=== PATIENT | female | born 1960 | race Caucasian/White ===

== ENCOUNTER 2018-04-17 06:04 | Inpatient (IN) | payer MEDICARE, MEDICAID ==
[~2018-04-17 06:04] MED LIST: Buffered Lidocaine 0.9% SYRIN* 5 ML/SYR SYRINGE INTRADERM ONE; Dexamethasone IV* 4 MG/ML 1 ML (4 MG) IV SLOW PU ONE; Famotidine IV* 10 MG/ML 2 ML (20 mg) IV ONE
[2018-04-17] MEDS ORDERED: Morphine PCA ADULT* 5 MG/ML 30 ML ONE (06:11)
[2018-04-17] MEDS ORDERED: Dexamethasone IV* 4 MG/ML 1 ML (4 MG) ONE (06:21)
[2018-04-17] MEDS ORDERED: Buffered Lidocaine 0.9% SYRIN* 5 ML/SYR SYRINGE ONE (06:21)
[2018-04-17] MEDS ORDERED: Famotidine IV* 10 MG/ML 2 ML (20 mg) ONE (06:21)
[2018-04-17] MEDS ORDERED: ceFAZolin 2 GM PREMIX in ORs 2 GM/50 ML BAG IVPB ONE (06:21)
[2018-04-17] MEDS ORDERED: fentaNYL* 50 MCG/ML 5 ML VIAL (250 MCG VIAL) ONE (06:52)
[2018-04-17] MEDS ORDERED: Midazolam* 1 MG/ML 2 ML VIAL (2 MG) ONE (06:53)
[2018-04-17] MEDS ORDERED: Rocuronium* 10 MG/ML VIAL ONE (06:53)
[2018-04-17] MEDS ORDERED: Naloxone* 0.4 MG/ML 1 ML VIAL IV PRN (07:30)
[2018-04-17] MEDS ORDERED: Acetaminophen IV 1GM/100ML * 1,000 MG/100 ML VIAL IVPB ONE (07:30)
[2018-04-17] MEDS ORDERED: PROCHLORPERAZINE INJ 5 MG/ML 2 ML VIAL IV PRN (07:30)
[2018-04-17] MEDS ORDERED: HYDROcodone/ACETAMIN 5-325 MG* 1 TAB PO PRN (07:30)
[2018-04-17] MEDS ORDERED: diPHENhydraMINE IV* 50 MG/ML 1 ml VIAL (BENADRYL) IV PRN (07:30)
[2018-04-17] MEDS ORDERED: DiMENhydriNATE IV* 50 MG/ML VIAL IV PUSH PRN (07:30)
[2018-04-17] MEDS ORDERED: HYDROmorphone INJ1* 1 MG/ML SYRINGE IV PRN (07:30)
[2018-04-17] MEDS ORDERED: Ketorolac INJ* 30 MG/ML 1 ML VIAL IV PRN (07:30)
[2018-04-17] MEDS ORDERED: Bupivacaine 0.25% EPI 200,000* 30 ML SDV ONE (07:43)
[2018-04-17] MEDS ORDERED: Tranexamic Acid 1,000 MG in NS 0.9% 50 ML IV ONE (08:00)
[2018-04-17] MEDS ORDERED: HYDROmorphone INJ1* 1 MG/ML SYRINGE ONE (08:04)
[2018-04-17] MEDS ORDERED: Propofol* 10 MG/ML 20 ML BTL IV PUSH ONE (08:19)
[2018-04-17] MEDS ORDERED: Lidocaine 2% PF * 5 ML VIAL ONE (08:20)
[2018-04-17] MEDS ORDERED: Neostigmine Methylsulfate* 2 MG/2 ML SYRINGE ONE (09:05)
[2018-04-17] MEDS ORDERED: Glycopyrrolate IV* 0.2 MG/ML 1 ML VIAL ONE (09:07)
[2018-04-17] MEDS ORDERED: Ondansetron INJ* 2 MG/ML VIAL ONE (09:09)
[2018-04-17] MEDS ORDERED: Acetaminophen IV 1GM/100ML * 100 ML ONE (09:40)
[2018-04-17] MEDS ORDERED: Ketorolac INJ* 30 MG/ML 1 ML VIAL ONE (09:40)
[2018-04-17] MEDS ORDERED: Magnesium Hydroxide LIQ* 30 ML UDC PO PRN (10:13)
[2018-04-17] MEDS ORDERED: Bisacodyl SUPP* 10 MG SUPP PR PRN (10:13)
[2018-04-17] MEDS ORDERED: Cyclobenzaprine TAB* 10 MG PO PRN (10:13)
[2018-04-17] MEDS ORDERED: Ondansetron INJ* 2 MG/ML VIAL IV PRN (10:13)
[2018-04-17] MEDS ORDERED: oxyCODONE/Acetamin 5/325 MG* TAB PO PRN (10:13)
[2018-04-17] MEDS ORDERED: Acetaminophen TAB* 325 MG PO PRN (10:13)
[2018-04-17] MEDS: fentaNYL* 50 MCG/ML 2 ML VIAL (100 MCG VIAL) IV PRN ×2 (10:30→10:43)
[2018-04-17] MEDS ORDERED: fentaNYL* 50 MCG/ML 2 ML VIAL (100 MCG VIAL) ONE (10:30)
[2018-04-17] MEDS: oxyCODONE TAB* 5 MG TAB PO PRN ×3 (13:26→22:57)
[2018-04-17] MEDS ORDERED: Levalbuterol 1.25MG/0.5ML NEB INH SCH (15:00)
--- NOTE | 2018-04-17 15:10 | CONS ---
CONSULTATION NOTE: DATE OF CONSULT: 04/17/18 REASON FOR CONSULT: Medical evaluation in the perioperative setting. HISTORY OF PRESENT ILLNESS: The patient is a 57-year-old lady with history of asthma, lupus, and hypothyroidism, who has had history of partial right knee replacement that was subsequently revised to total, but still complained of pain post revision back in 2011. She has had recent imaging, which showed a possible loose right tibial component, which led to her second revision of her right total knee on the tibial component only. Postoperatively , we have been informed by Orthopedic Surgery to further evaluate the patient in the perioperative setting given she has multiple medical issues. PAST MEDICAL AND SURGICAL HISTORY: Asthma; hyperlipidemia; lupus, on Copaxone every Tuesday, Tuesday and Tuesday; hypothyroidism; anxiety; depression; multiple sclerosis; uterine cancer, status post RACHEL-BSO back in 1984; osteoporosis greater than 10 years; PTSD; wrist fracture, bilateral; status post gastric bypass; total replacement of the right knee; wrist surgery; hysterectomy; appendectomy; gallbladder surgery; ankle fracture on the right. ALLERGIES: To MORPHINE SULFATE, EFFEXOR, DILAUDID, LATEX. FAMILY HISTORY: Heart disease, hypertension, cancer, and rheumatoid arthritis. SOCIAL HISTORY: The patient lives alone. Denies ever having smoked. Denies any alcohol abuse history nor illicit drug use. REVIEW OF SYSTEMS: She denied any recent headaches, dizziness, fevers, chills, nausea, vomiting, chest pain, shortness of breath, increased coughing or sputum production, abdominal pain, diarrhea, constipation, pain and/or increased frequency on urination, myalgias, arthralgias, throat pain, or new skin lesions. The rest of the 14-point review of systems is otherwise unremarkable. PHYSICAL EXAM: Shows the most recent vital signs of record with blood pressure of 102/65, 97.8 degrees Fahrenheit temperature, 68 beats per minute heart rate, 16 per minute respiratory rate, 98% saturation on room air. General Appearance : The patient is awake, alert, and oriented x3, not in acute distress. HEENT: Normocephalic, atraumatic. PERRLA. Extraocular muscles intact. Negative for icterus. Moist oral mucosa. Negative throat erythema. Neck is soft, supple with no cervical lymphadenopathy, no JVD. Heart: S1, S2 within normal limits. Regular rate and rhythm. No murmurs, rubs, or gallops. Chest: Clear to auscultation bilaterally. Good air entry. No wheezes, rales, or rhonchi. Abdomen is soft, nondistended, nontender. Normoactive bowel sounds 4 times Q. Extremities: No cyanosis, clubbing, or edema. Psychiatric: No active psychosis, depression, suicidal ideation nor homicidal ideation. Skin is warm to touch. ASSESSMENT AND PLAN: The patient is a 57-year-old lady with a history of hyperlipidemia, lupus and hypothyroidism, status post revision of right total knee of the tibial component only. 1. Status post revision of right total knee. We will defer to Orthopedic Surgery including postoperative pain management. 2. Hypothyroidism. We will continue Synthroid 125 mcg p.o. q.p.m. 3. Hyperlipidemia. We will continue pravastatin and we will continue watchful waiting. 4. Depression. Continue citalopram. 5. Anxiety. We will start the patient back on diazepam 10 mg p.o. t.i.d. starting tonight. The patient is awake, alert, and oriented on my exam, but we will hold off until tonight given she is still coming off sedation given her recent postoperative state. 6. History of lymphedema. Per the patient, she has never been diagnosed with heart disease and that Lasix has been prescribed for her due to her lower extremity swelling. She denies any history of congestive heart failure. At this time, I would not recommend to place her back on Lasix until at least tomorrow or at least 1 day postop assuming that the patient remains hemodynamically stable. The patient also mentions that she has been placed on carvedilol by her PCP given she was told that she has had an arrhythmia, but was unclear of what type. We will restart her on beta-silvio tonight with appropriate holding orders. 7. DVT prophylaxis: The patient is on subcu heparin and we will defer to Ortho. 8. Disposition: PT and OT eval pending and we will defer to Ortho. Thank you for involving us with Ms. Mederos's care and management. We will follow along with you. [id number]/[facility] #: [id number] CRISPIN
[2018-04-17] MEDS: Heparin VIAL(*) 5000 UNITS/ML VIAL (FIVE THOUSAND) SUBCUT SCH ×2 (15:23→21:32)
[2018-04-17] MEDS ORDERED: Warfarin TAB(*) 6 MG PO ONE (17:00)
[2018-04-17] MEDS ORDERED: ceFAZolin 1 GM in Dextrose (*) 1 GM/50 ML BAG IVPB SCH (19:00)
[2018-04-17] MEDS: ceFAZolin 1 GM in Dextrose (*) 1 GM/50 ML BAG IVPB SCH (19:34)
[2018-04-17] MEDS ORDERED: Melatonin 3 MG TAB PO PRN (19:48)
[2018-04-17] MEDS ORDERED: Temazepam CAP* 15 MG PO PRN (19:48)
--- NOTE | 2018-04-17 21:23 | OP ---
DATE OF OPERATION: 04/17/18 - ROOM #347 DATE OF : 64 SURGEON: Stoney Velasco MD MITER SAW OPERATOR: Justus Angulo RPA ANESTHESIA: General. PRE-OP DIAGNOSIS: Loose right tibia, right total knee. POST-OP DIAGNOSIS: Loose right tibia, right total knee. OPERATIVE PROCEDURE: Revision, right tibia. ESTIMATED BLOOD LOSS: Less than 50 cc. COMPLICATIONS: None. HARDWARE: 1. DePuy MBT revision. 2. Cemented tray with 10 mm step wedge augments both medial and lateral, a 16 x 115 mm fluted stem, and a 10-mm tibial poly for a #4. SUMMARY: Ms. Mederos is a 57-year-old female who had undergone a right total knee arthroplasty as a revision to a partial knee arthroplasty in [place] in 2011. She had done all right in that she was able to walk and get around but had constant complaints of pain about the knee. She was diffusely tender about the knee and even more tender about the proximal tibia. There was also a very specific sclerotic line about the tibial component and a bone scan lit up positive about the tibial component as well. She underwent CRP and ESR testing , both of which had come back normal and considering her pain seemed to be more mechanical, I discussed with her that her tibial component appeared to be loose. I discussed with her revising the tibial component so that she would no longer have that pain. I did warn her that the revision knees can be more painful sometimes and it can be difficult to regain function as well. Other risks of surgery such as infection, scar formation, stiffness, DVT, and pulmonary embolism as well as loosening once again of the implants were discussed. She had been declared medically optimized and wished to proceed. DESCRIPTION OF PROCEDURE: The patient was brought to the OR and general anesthesia was established. Tourniquet was placed over the proximal right thigh and was used during the case. Total tourniquet time would be 75 minutes at 250 mmHg. Right knee was prepped and then draped. Justus Angulo was present for all aspects of the case and it could not have been performed without an assist. Esmarch was used to exsanguinate the leg and the tourniquet was raised. Incision was made using the old scar and carried down through the skin and subcutaneous scar. Extensor mechanism was exposed and a sharp parapatellar arthrotomy was made. Thickened, clear yellowish joint fluid was encountered. Using an osteotome, the stem extension on the poly was sharply cut and poly was easily removed. Just with an osteotome, levering under the tibial component, it was grossly loose and was easily taken out by hand. Osteotome was then used to remove the cement as well as some of the membrane which had formed in the keel recess. Wound was copiously pulse lavaged to make sure it was clear of all of the cement. Beginning with the drill, canal was opened and the hand reamers were then run until I had a nice bite with the 16 reamer. Outrigger was assembled and placed and tibial clean up cut was then taken. This was adjusted as I wanted to take a very minimum as the original total knee replacement had taken quite a bit of the proximal tibia and that first cut only skimmed the bone. A second cut taking perhaps a millimeter was taken and now I had good bone all the way around. I also had plan to use the augments on the tibia so that she would not have as much poly. The reamer was then run and a trial tibial component was assembled and placed. However, with the 4 femur, I was limited in sizes of what I could use on the tibial side. The 3 had quite a bit of overhang and I was displeased on how they sat. I would need to take out her femur, which was secure and considering that the femur did not seem to be the problem, I trialed her with the #2 and the augments. Her motion and stability were excellent. She did, though, have a little overhang on that medial side, plus a little poly overhang with using the poly that would fit the femur. Considering though that the flare of the tibia would have been there, I did not think that this would be something which was going to give her significant troubles. Therefore, decision was made to keep the femur and to go ahead and continuing to just revise the tibia. Parts were then called for and prepared and antibiotic cement was being prepared. Cement was just placed about the top of the tibia and the tibial component was then impacted into place. Nice secure fit seemed to be obtained. Once the cement had hardened, she was trialed with a 10-mm poly and had wonderful motion and stability. Knee was copiously pulse lavaged and searched for cement. A few small pieces were found. Polyethylene was then dropped into place and knee was again copiously pulse lavaged. Parapatellar arthrotomy was repaired using interrupted #1 Vicryl sutures and the tourniquet was let down. No significant bleeding was encountered. Wound was again copiously pulse lavaged and subcutaneous tissues were reapproximated using 2-0 Vicryl. Skin was closed using alex. Sterile dressing was applied. The patient was then awakened in the OR and was stable on transfer to the recovery room. [id number]/[facility] #: [id number] CRIS[place]
[2018-04-17] MEDS: GLATIRAMER ACETATE 40 MG INJ SCH (21:29)
[2018-04-17] MEDS: Carvedilol TAB* 3.125 MG PO SCH (21:30)
[2018-04-17] MEDS: Diazepam TAB(*) 5 MG PO SCH (21:30)
[2018-04-17] MEDS: Magnesium Hydroxide LIQ* 30 ML UDC PO SCH (21:30)
[2018-04-17] MEDS: Docusate CAP* 100 MG PO SCH (21:30)
[2018-04-18] MEDS: oxyCODONE TAB* 5 MG TAB PO PRN ×4 (04:12→21:00)
[2018-04-18] MEDS: ceFAZolin 1 GM in Dextrose (*) 1 GM/50 ML BAG IVPB SCH ×2 (04:13→11:30)
[2018-04-18 05:21] LABS: ABS Basophils 0 10^3/ul (0-0.2); ABS Eosinophils 0 10^3/ul (0-0.6); ABS Lymphocytes 1.3 10^3/ul (1.0-4.8); ABS Monocytes 0.5 10^3/ul (0-0.8); ABS Neutrophils 5.2 10^3/ul (1.5-7.7); ABS Nucleated RBC 0 10^3/ul; Eosinophil % 0.2 % (0-6); Hematocrit 31 % (35-47); Hemoglobin 10.3 g/dl (12.0-16.0); Lymphocyte % 18.6 % (25-47); Mean Corpuscular HGB Conc 34 g/dl (31-36); Mean Corpuscular Hemoglobin 29 pg (27-31); Mean Corpuscular Volume 85 fL (80-97); Mean Platelet Volume 8.7 fL (7.4-10.4); Nucleated Red Blood Cells % 0; Platelet Count 149 10^3/ul (150-450); Red Blood Count 3.62 10^6/ul (4.00-5.40); Red Cell Distribution Width 13 % (10.5-15); White Blood Count 7.1 10^3/ul (3.5-10.8)
[2018-04-18 05:29] LABS: INR 0.9 (0.77-1.02)
[2018-04-18 05:45] LABS: EGFR Non-African American 62.6 (>60)
[2018-04-18] MEDS: oxyCODONE/Acetamin 5/325 MG* TAB PO PRN ×4 (06:13→23:55)
[2018-04-18] MEDS: Heparin VIAL(*) 5000 UNITS/ML VIAL (FIVE THOUSAND) SUBCUT SCH ×3 (06:14→21:02)
[2018-04-18] MEDS: Levothyroxine TAB* 125 MCG TAB PO SCH (06:14)
[2018-04-18] MEDS: Levalbuterol 1.25MG/0.5ML NEB INH PRN (07:53)
[2018-04-18] MEDS: CMC:Pravastatin (NF) 20 MG TAB PO SCH (08:24)
[2018-04-18] MEDS: Calcium Carbonate TAB* 1250 MG (CALCIUM 500 MG) PO SCH (08:24)
[2018-04-18] MEDS: Docusate CAP* 100 MG PO SCH ×2 (08:24→20:50)
[2018-04-18] MEDS: Carvedilol TAB* 3.125 MG PO SCH ×2 (08:24→21:04)
[2018-04-18] MEDS: Citalopram TAB* 20 MG PO SCH (08:24)
[2018-04-18] MEDS: Vitamin THERAPEUTIC TAB PO SCH (08:24)
[2018-04-18] MEDS: Magnesium Hydroxide LIQ* 30 ML UDC PO SCH ×2 (08:25→20:51)
[2018-04-18] MEDS: Diazepam TAB(*) 5 MG PO SCH ×3 (08:28→20:50)
[2018-04-18] MEDS ORDERED: Cyanocobalamin INJ * 1,000 MCG/ML VIAL 1 ML VIAL IM SCH (09:00)
--- NOTE | 2018-04-18 09:06 | PN ---
Progress Note - Progress Note Date of Service: 04/18/18 SOAP: Subjective: [] Patient was seen and examined at bedside. Her right knee is painful but tolerable. She denies chest pain, shortness of breath, dizziness, nausea. No history of DVT. Reports a history of MS and PTSD, she reports feeling very anxious currently. She is very weary about returning home tomorrow and would be willing to attend PMRU if able. Objective: []General: Well appearing, NAD RLE: Dressing CDI, cryo unit in use, DF/PF intact, sensation intact distally, DP2+. Calves supple and nontender without erythema, edema or palpable cords Assessment: []POD 1 sp right knee revision of tibial component Mutiple sclerosis, lupus, asthma, s/p gastric bypass Plan: []WBAT PT/OT Discussed patient desires for anticoag with Dr Velasco- she will be on heparin/ coumadin while in house ( 8 mg coumadin today ) and will transition to lovenox only x 30 days post op at discharge PMRU referral in Vital Signs Temp 98.4 F 04/18/18 07:27 Pulse 75 04/18/18 07:27 Resp 18 04/18/18 08:28 BP 101/64 04/18/18 07:27 Pulse Ox 96 04/18/18 07:27 Intake & Output 04/17/18 04/18/18 04/18/18 18:59 06:59 18:59 Intake Total 1740 2278 Output Total 600 1750 Balance 1140 528 Intake: IV Fluids 1500 910 LR 1400 910 NS 50ML, Cefazolin 2G 50 TXA 1GM IN 50ML NS 50 IVPB 58 ABX - CEFAZOLIN 58 Oral 240 1310 Output: Romo 450 1750 Estimated Blood Loss 150 Laboratory Last Values WBC 7.1 10^3/ul (3.5-10.8) 04/18/18 05:10 RBC 3.62 10^6/ul (4.00-5.40) L 04/18/18 05:10 Hgb 10.3 g/dl (12.0-16.0) L 04/18/18 05:10 Hct 31 % (35-47) L 04/18/18 05:10 MCV 85 fL (80-97) 04/18/18 05:10 MCH 29 pg (27-31) 04/18/18 05:10 MCHC 34 g/dl (31-36) 04/18/18 05:10 RDW 13 % (10.5-15) 04/18/18 05:10 Plt Count 149 10^3/ul (150-450) L 04/18/18 05:10 MPV 8.7 fL (7.4-10.4) 04/18/18 05:10 Neut % (Auto) 73.4 % (38-83) 04/18/18 05:10 Lymph % (Auto) 18.6 % (25-47) L 04/18/18 05:10 [place] % (Auto) 7.5 % (0-7) H 04/18/18 05:10 Eos % (Auto) 0.2 % (0-6) 04/18/18 05:10 Baso % (Auto) 0.3 % (0-2) 04/18/18 05:10 Absolute Neuts (auto) 5.2 10^3/ul (1.5-7.7) 04/18/18 05:10 Absolute Lymphs (auto) 1.3 10^3/ul (1.0-4.8) 04/18/18 05:10 Absolute Monos (auto) 0.5 10^3/ul (0-0.8) 04/18/18 05:10 Absolute Eos (auto) 0 10^3/ul (0-0.6) 04/18/18 05:10 Absolute Basos (auto) 0 10^3/ul (0-0.2) 04/18/18 05:10 Absolute Nucleated RBC 0 10^3/ul 04/18/18 05:10 Nucleated RBC % 0 04/18/18 05:10 INR (Anticoag Therapy) 0.90 (0.77-1.02) 04/18/18 05:10 Sodium 140 mmol/L (135-145) 04/18/18 05:10 Potassium 3.7 mmol/L (3.5-5.0) 04/18/18 05:10 Chloride 106 mmol/L (101-111) 04/18/18 05:10 Carbon Dioxide 31 mmol/L (22-32) 04/18/18 05:10 Anion Gap 3 mmol/L (2-11) 04/18/18 05:10 BUN 11 mg/dL (6-24) 04/18/18 05:10 Creatinine 0.93 mg/dL (0.51-0.95) 04/18/18 05:10 Est GFR ( Amer) 75.7 (>60) 04/18/18 05:10 Est GFR (Non-Af Amer) 62.6 (>60) 04/18/18 05:10 BUN/Creatinine Ratio 11.8 (8-20) 04/18/18 05:10 Glucose 108 mg/dL (70-100) H 04/18/18 05:10 Calcium 8.0 mg/dL (8.6-10.3) L 04/18/18 05:10 Phosphorus 3.5 mg/dL (2.5-5.0) 04/18/18 05:10 Magnesium 2.0 mg/dL (1.9-2.7) 04/18/18 05:10 Total Bilirubin 0.20 mg/dL (0.2-1.0) 04/18/18 05:10 AST 32 U/L (13-39) 04/18/18 05:10 ALT 28 U/L (7-52) 04/18/18 05:10 Alkaline Phosphatase 80 U/L (34-104) 04/18/18 05:10 Total Protein 4.9 g/dL (6.4-8.9) L 04/18/18 05:10 Albumin 3.0 g/dL (3.2-5.2) L 04/18/18 05:10 Globulin 1.9 g/dL (2-4) L 04/18/18 05:10 Albumin/Globulin Ratio 1.6 (1-3) 04/18/18 05:10
[2018-04-18] MEDS ORDERED: Fluticasone NASAL SPRAY 50MCG* 16 gm SPRAY BTL INTRANASAL PRN (11:43)
--- NOTE | 2018-04-18 11:45 | PN ---
Hospitalist Progress Note Date of Service: 04/18/18 HOSPITALIST ADDENDUM Mrs Mederos is a 57yo F with PMH of Asthma, HLD, SLE, hypothyroidism, anxiety, depression, multiple sclerosis, uterine CA s/p resection, who was admitted for right total knee arthroplasty revision. VS have been stable. September d/c IVF, but would not resume Furosemide/Potassium chloride yet, as her BP is on the softer side. Continue Coreg with holding parameters. Hospitalist service will continue to follow.
[2018-04-18] MEDS: Albuterol HFA INHALER* 8 gm MDI INH PRN ×2 (12:34→23:58)
[2018-04-18] MEDS ORDERED: NS 0.9% 250 ML* 250 ML IV ONE (15:21)
[2018-04-18] MEDS ORDERED: Warfarin TAB(*) 4 MG PO ONE (17:00)
[2018-04-19] MEDS: oxyCODONE TAB* 5 MG TAB PO PRN ×3 (03:23→20:37)
[2018-04-19] MEDS: oxyCODONE/Acetamin 5/325 MG* TAB PO PRN ×2 (06:02→14:05)
[2018-04-19] MEDS: Levothyroxine TAB* 125 MCG TAB PO SCH (06:02)
[2018-04-19] MEDS: Heparin VIAL(*) 5000 UNITS/ML VIAL (FIVE THOUSAND) SUBCUT SCH ×3 (06:03→21:55)
--- NOTE | 2018-04-19 06:27 | PN ---
Progress Note - Progress Note Date of Service: 04/19/18 SOAP: Subjective: [] Patient seen and examined at bedside. Her knee pain is well controlled at this time. Denies chest pain, dizziness or nausea. She has felt short of breath overnight and reports nursing had to encourage deep breathing often as her O2 sats were in the 80's. She has a history of asthma, shortness of breath improved but did not resolve with inhaler. Currently shortness of breath is mild. HR up to 116 overnight. Tmax 99.4 Objective: []General: Well appearing, NAD RLE: Dressing changed, incision CDI. thigh is soft, DF/PF intact, sensation intact distally, DP2+. Calf if swollen and mildly tender without erythema or palpable cords LLE: Calf supple and nontender without erythema or palpable cords Assessment: []POD 2 sp right knee revision of tibial component Mutiple sclerosis, lupus, asthma, s/p gastric bypass Plan: []WBAT PT/OT Discussed patient desires for anticoag with Dr Velasco- she will be on heparin/ coumadin while in house ( 8 mg coumadin today ) and will transition to lovenox only x 30 days post op at discharge PMRU referral in EKG, CTA and LE dopplar ordered due to reports of low O2, elevated HR, feeling SOB overnight. Vital Signs Temp 99.3 F 04/19/18 03:29 Pulse 88 04/19/18 03:45 Resp 18 04/19/18 06:15 BP 115/65 04/19/18 03:29 Pulse Ox 96 04/19/18 03:29 Intake & Output 04/18/18 04/18/18 04/19/18 06:59 18:59 06:59 Intake Total 2278 320 1450 Output Total 6239 783 8585 Balance 528 -480 -100 Intake: IV Fluids 910 LR 910 IVPB 58 ABX - CEFAZOLIN 58 Oral 8079 688 4307 Output: Urine 800 1550 Romo 1750 Other: # Bowel Movements 0 Laboratory Last Values WBC 7.1 10^3/ul (3.5-10.8) 04/18/18 05:10 RBC 3.62 10^6/ul (4.00-5.40) L 04/18/18 05:10 Hgb 10.7 g/dl (12.0-16.0) L 04/19/18 06:15 Hct 33 % (35-47) L 04/19/18 06:15 MCV 85 fL (80-97) 04/18/18 05:10 MCH 29 pg (27-31) 04/18/18 05:10 MCHC 34 g/dl (31-36) 04/18/18 05:10 RDW 13 % (10.5-15) 04/18/18 05:10 Plt Count 139 10^3/ul (150-450) L 04/19/18 06:15 MPV 8.5 fL (7.4-10.4) 04/19/18 06:15 Neut % (Auto) 73.4 % (38-83) 04/18/18 05:10 Lymph % (Auto) 18.6 % (25-47) L 04/18/18 05:10 Carbon % (Auto) 7.5 % (0-7) H 04/18/18 05:10 Eos % (Auto) 0.2 % (0-6) 04/18/18 05:10 Baso % (Auto) 0.3 % (0-2) 04/18/18 05:10 Absolute Neuts (auto) 5.2 10^3/ul (1.5-7.7) 04/18/18 05:10 Absolute Lymphs (auto) 1.3 10^3/ul (1.0-4.8) 04/18/18 05:10 Absolute Monos (auto) 0.5 10^3/ul (0-0.8) 04/18/18 05:10 Absolute Eos (auto) 0 10^3/ul (0-0.6) 04/18/18 05:10 Absolute Basos (auto) 0 10^3/ul (0-0.2) 04/18/18 05:10 Absolute Nucleated RBC 0 10^3/ul 04/18/18 05:10 Nucleated RBC % 0 04/18/18 05:10 INR (Anticoag Therapy) 1.17 (0.77-1.02) H 04/19/18 06:15 Sodium 140 mmol/L (135-145) 04/18/18 05:10 Potassium 3.7 mmol/L (3.5-5.0) 04/18/18 05:10 Chloride 106 mmol/L (101-111) 04/18/18 05:10 Carbon Dioxide 31 mmol/L (22-32) 04/18/18 05:10 Anion Gap 3 mmol/L (2-11) 04/18/18 05:10 BUN 11 mg/dL (6-24) 04/18/18 05:10 Creatinine 0.93 mg/dL (0.51-0.95) 04/18/18 05:10 Est GFR ( Amer) 75.7 (>60) 04/18/18 05:10 Est GFR (Non-Af Amer) 62.6 (>60) 04/18/18 05:10 BUN/Creatinine Ratio 11.8 (8-20) 04/18/18 05:10 Glucose 108 mg/dL (70-100) H 04/18/18 05:10 Calcium 8.0 mg/dL (8.6-10.3) L 04/18/18 05:10 Phosphorus 3.5 mg/dL (2.5-5.0) 04/18/18 05:10 Magnesium 2.0 mg/dL (1.9-2.7) 04/18/18 05:10 Total Bilirubin 0.20 mg/dL (0.2-1.0) 04/18/18 05:10 AST 32 U/L (13-39) 04/18/18 05:10 ALT 28 U/L (7-52) 04/18/18 05:10 Alkaline Phosphatase 80 U/L (34-104) 04/18/18 05:10 Total Protein 4.9 g/dL (6.4-8.9) L 04/18/18 05:10 Albumin 3.0 g/dL (3.2-5.2) L 04/18/18 05:10 Globulin 1.9 g/dL (2-4) L 04/18/18 05:10 Albumin/Globulin Ratio 1.6 (1-3) 04/18/18 05:10
[2018-04-19 06:33] LABS: Hematocrit 33 % (35-47); Hemoglobin 10.7 g/dl (12.0-16.0); Mean Platelet Volume 8.5 fL (7.4-10.4); Platelet Count 139 10^3/ul (150-450)
[2018-04-19 06:40] LABS: INR 1.17 (0.77-1.02)
[2018-04-19] MEDS: Carvedilol TAB* 3.125 MG PO SCH ×2 (08:32→20:38)
[2018-04-19] MEDS: Albuterol HFA INHALER* 8 gm MDI INH PRN (08:38)
[2018-04-19] MEDS: CMC:Pravastatin (NF) 20 MG TAB PO SCH (08:39)
[2018-04-19] MEDS: Calcium Carbonate TAB* 1250 MG (CALCIUM 500 MG) PO SCH (08:39)
[2018-04-19] MEDS: Vitamin THERAPEUTIC TAB PO SCH (08:39)
[2018-04-19] MEDS: Docusate CAP* 100 MG PO SCH ×2 (08:39→20:37)
[2018-04-19] MEDS: Citalopram TAB* 20 MG PO SCH (08:40)
[2018-04-19] MEDS: Diazepam TAB(*) 5 MG PO SCH ×3 (08:40→20:37)
[2018-04-19] MEDS: Magnesium Hydroxide LIQ* 30 ML UDC PO SCH ×2 (08:41→20:37)
--- NOTE | 2018-04-19 09:21 | PN ---
Subjective Date of Service: 04/19/18 Interval History: HOSPITALIST PROGRESS NOTE Patient seen and examined at bedside. Care reviewed and d/w Tejas Hassan RN. She had dyspnea and chest pressure overnight that she describes as not being able to take a deep breath, but did not have pain, only pressure. SO2 reportedly in the 80s overnight. C/o leg edema, but no calf tenderness. Family History: Unchanged from Admission Social History: Unchanged from Admission Past Medical History: Unchanged from Admission Objective Active Medications: Acetaminophen (Tylenol Tab*) 650 mg PO Q8H PRN PRN Reason: PAIN OR TEMPERATURE Albuterol (Ventolin Hfa Inhaler*) 1 puff INH Q4HR PRN PRN Reason: SOB/WHEEZING Last Admin: 04/19/18 08:38 Dose: 1 puff Bisacodyl (Dulcolax Supp*) 10 mg MD DAILY PRN PRN Reason: constipation Calcium Carbonate (Calcium Carbonate Tab*) 2,500 mg PO QAM [facility] Last Admin: 04/19/18 08:39 Dose: 2,500 mg Carvedilol (Coreg Tab*) 3.125 mg PO BID [facility] Last Admin: 04/19/18 08:32 Dose: Not Given Citalopram Hydrobromide (Celexa Tab*) 20 mg PO QAM [facility] Last Admin: 04/19/18 08:40 Dose: 20 mg Cyanocobalamin (Vitamin B12 Inj *) 1,000 mcg IM MONTHLY [facility] Cyclobenzaprine HCl (Flexeril Tab*) 5 mg PO TID PRN PRN Reason: SPASMS Diazepam (Valium Tab(*)) 10 mg PO TID [facility] Last Admin: 04/19/18 08:40 Dose: 10 mg Docusate Sodium (Colace Cap*) 100 mg PO BID [facility] Last Admin: 04/19/18 08:39 Dose: 100 mg Fluticasone Propionate (Flonase Nasal [place] 50mcg*) 1 spray INTRANASAL QAM PRN PRN Reason: CONGESTION Heparin Sodium (Porcine) (Heparin Vial(*)) 5,000 units SUBCUT Q8HR [facility] Last Admin: 04/19/18 06:03 Dose: 5,000 units Lactulose (Lactulose*) 30 ml PO Q6H PRN PRN Reason: constipation Last Admin: 04/19/18 08:37 Dose: 30 ml Levalbuterol HCl (Xopenex 1.25 Mg/0.5 Ml Neb.Susy*) 1.25 mg INH [id number] AWAKE PRN PRN Reason: SHORTNESS OF BREATH Last Admin: 04/18/18 07:53 Dose: 1.25 mg Levothyroxine Sodium (Synthroid Tab*) 125 mcg PO 0600 [facility] Last Admin: 04/19/18 06:02 Dose: 125 mcg Magnesium Hydroxide (Milk Of Magnesia Liq*) 30 ml PO BID [facility] Last Admin: 04/19/18 08:41 Dose: Not Given Magnesium Hydroxide (Milk Of Magnesia Liq*) 30 ml PO Q6H PRN PRN Reason: constipation Melatonin (Melatonin) 9 mg PO BEDTIME PRN PRN Reason: SLEEP Multivitamins (Theragran Tab*) 1 tab PO DAILY [facility] Last Admin: 04/19/18 08:39 Dose: 1 tab Nft: Glatiramer (Acetate 40 Mg Syr) 40 mg INJ MOWEFR [facility] Last Admin: 04/17/18 21:29 Dose: 40 mg Ondansetron HCl (Zofran Inj*) 4 mg IV Q6H PRN PRN Reason: nausea Oxycodone HCl (Roxycodone Tab*) 10 mg PO Q4H PRN PRN Reason: PAIN - SEVERE Last Admin: 04/19/18 08:40 Dose: 10 mg Oxycodone/Acetaminophen (Percocet 5/325 Tab*) 1 tab PO Q4H PRN PRN Reason: PAIN Oxycodone/Acetaminophen (Percocet 5/325 Tab*) 2 tab PO Q4H PRN PRN Reason: PAIN Last Admin: 04/19/18 06:02 Dose: 2 tab Pravastatin Sodium (Pravachol (Nf)) 20 mg PO [facility]; Protocol Last Admin: 04/19/18 08:39 Dose: 20 mg Temazepam (Restoril Cap*) 15 mg PO BEDTIME PRN PRN Reason: SLEEP Last Admin: 04/18/18 00:07 Dose: 15 mg Vital Signs - 8 hr 04/19/18 04/19/18 04/19/18 02:43 03:23 03:29 Temperature 99.3 F Pulse Rate 116 Respiratory 18 18 16 Rate Blood Pressure 115/65 (mmHg) O2 Sat by Pulse 96 Oximetry 04/19/18 04/19/1818 03:45 06:02 06:15 Temperature Pulse Rate 88 Respiratory 18 18 Rate Blood Pressure (mmHg) O2 Sat by Pulse Oximetry 04/19/18 04/19/18 04/19/18 07:25 07:27 08:32 Temperature 98.7 F Pulse Rate 88 Respiratory 17 19 Rate Blood Pressure 87/51 94/58 (mmHg) O2 Sat by Pulse 95 Oximetry 04/19/18 04/19/18 08:40 08:49 Temperature Pulse Rate 90 Respiratory 18 Rate Blood Pressure 104/64 (mmHg) O2 Sat by Pulse 100 Oximetry Oxygen Devices in Use Now: None Appearance: Pleasant lady sitting up in bed in NAD. Eyes: No Scleral Icterus Ears/Nose/Mouth/Throat: Mucous Membranes Moist Neck: Trachea Midline Respiratory: Symmetrical Chest Expansion and Respiratory Effort, - - BS+ bilaterally with faint bibasilar crackles Cardiovascular: RRR - Normal S1 and S2 Extremities: - - Bilateral LE pitting edema, right > left, no calf tenderness Neurological: Alert and Oriented x 3, NL Muscle Strength and Tone Result Diagrams: 04/19/18 06:15 04/18/18 05:10 Assess/Plan/Problems-Billing Assessment: Mrs Mederos feliz 57yo F with PMH of asthma, HLD, SLE, hypothyroidism, anxiety, depression, multiple sclerosis, uterine CA, who was admitted for an elective right TKA revision. - Patient Problems (1) History of revision of total replacement of right knee joint Comment: - Management as per ortho. (2) Chest pressure Comment: - Associated with dyspnea and low SO2. - EKG shows no ischemic changes and first troponin are negative. - For CTA chest to r/o PE, but suspect she may have mild fluid overload. May need gentle diuresis if CTA negative. (3) Anxiety Comment: - Continue Diazepam. (4) Hypothyroidism Comment: - Continue Levothyroxine. (5) HLD (hyperlipidemia) Comment: - Continue pravastatin. (6) Multiple sclerosis Comment: - Continue Glatiramer MOWEFR. (7) DVT prophylaxis Comment: - Heparin/Warfarin as per Ortho. (8) Full code status Status and Disposition: Hospitalist service will continue to follow with you.
[2018-04-19] MEDS ORDERED: Iohexol 350* (CONTRAST) 500 ML MDV IV ONE (10:08)
[2018-04-19] MEDS ORDERED: Furosemide IV* 10 MG/ML 2 ML VIAL (20 MG) IV SLOW PU ONE (11:52)
[2018-04-19] MEDS: Levalbuterol 1.25MG/0.5ML NEB INH PRN (12:04)
[2018-04-19 14:08] LABS: Urine Appearance Clear; Urine Blood 1+ (Negative); Urine Color Yellow; Urine Ketones Negative (Negative); Urine Protein Negative (Negative); Urine Red Blood Cell Trace(0-2/hpf) (Absent); Urine Specific Gravity > 1.060 (1.010-1.030); Urine Urobilinogen Negative (Negative); Urine White Blood Cell Trace(0-5/hpf) (Absent)
[2018-04-19] MEDS ORDERED: Warfarin TAB(*) 4 MG PO ONE (17:30)
[2018-04-19] MEDS: GLATIRAMER ACETATE 40 MG INJ SCH (20:35)
[2018-04-20] MEDS: oxyCODONE/Acetamin 5/325 MG* TAB PO PRN ×3 (02:06→14:22)
[2018-04-20] MEDS: Albuterol HFA INHALER* 8 gm MDI INH PRN ×2 (02:08→08:25)
[2018-04-20] MEDS: oxyCODONE TAB* 5 MG TAB PO PRN (05:38)
[2018-04-20] MEDS: Levothyroxine TAB* 125 MCG TAB PO SCH (05:38)
[2018-04-20] MEDS: Heparin VIAL(*) 5000 UNITS/ML VIAL (FIVE THOUSAND) SUBCUT SCH ×2 (05:39→14:29)
[2018-04-20 05:55] LABS: INR 3.02 (0.77-1.02)
[2018-04-20 05:56] LABS: Hematocrit 33 % (35-47); Hemoglobin 11.3 g/dl (12.0-16.0); Mean Platelet Volume 8.9 fL (7.4-10.4); Platelet Count 159 10^3/ul (150-450)
[2018-04-20] MEDS: Carvedilol TAB* 3.125 MG PO SCH ×2 (08:16→20:23)
[2018-04-20] MEDS: Magnesium Hydroxide LIQ* 30 ML UDC PO SCH ×2 (08:25→20:33)
[2018-04-20] MEDS: Docusate CAP* 100 MG PO SCH ×2 (08:26→20:33)
[2018-04-20] MEDS: CMC:Pravastatin (NF) 20 MG TAB PO SCH (08:26)
[2018-04-20] MEDS: Diazepam TAB(*) 5 MG PO SCH ×3 (08:26→20:32)
[2018-04-20] MEDS: Citalopram TAB* 20 MG PO SCH (08:26)
[2018-04-20] MEDS: Furosemide TAB* 40 MG PO SCH (08:26)
[2018-04-20] MEDS: Calcium Carbonate TAB* 1250 MG (CALCIUM 500 MG) PO SCH (08:26)
[2018-04-20] MEDS: Vitamin THERAPEUTIC TAB PO SCH (08:26)
--- NOTE | 2018-04-20 11:28 | PN ---
Progress Note - Progress Note Date of Service: 04/20/18 SOAP: Subjective: Patient seen and examined at bedside. Her knee pain is well controlled at this time. Denies chest pain, dizziness or nausea. She reports that she feels like she wants to go home but she had an episode of blackout last night while she was with a nurse. She has a history of asthma, shortness of breath improved but did not resolve with inhaler. Currently shortness of breath is mild. She states that if she was to be discharged today that her does not get out of work until after 5 and she would have to be discharged much later than she feels would be nice. Objective: []General: Well appearing, NAD RLE: Dressing CDI. thigh is soft, DF/PF intact, sensation intact distally, DP2+ . Calf if swollen and mildly tender without erythema or palpable cords LLE: Calf supple and nontender without erythema or palpable cords Vital Signs Temp 97.4 F 04/20/18 07:16 Pulse 83 04/20/18 07:16 Resp 18 04/20/18 09:26 BP 104/65 04/20/18 07:16 Pulse Ox 97 04/20/18 07:16 Intake & Output 04/19/18 04/20/18 04/20/18 18:59 06:59 18:59 Intake Total 1000 580 200 Output Total 2100 2100 400 Balance -1100 -1520 -200 Intake: Oral 1000 580 200 Output: Urine 2100 2100 400 Other: Date of Last Bowel 04/20/18 Movement # Bowel Movements 1 1 1 Estimated Stool Amount Small Medium Medium Assessment: []POD 3 sp right knee revision of tibial component Mutiple sclerosis, lupus, asthma, s/p gastric bypass Plan: []WBAT PT/OT anticoag she will be on heparin/coumadin while in house ( hold tonight coumadin ) and will transition to lovenox only x 30 days post op at discharge PMRU referral in Discussed blackout with hospitalists. They will evaluate today. I feel from a social standpoint if her is going to have a difficult time arriving at the hospital [facility] we could discharge her in the am should she be okay to be discharged.
--- NOTE | 2018-04-20 14:27 | PN ---
Subjective Date of Service: 04/20/18 Interval History: Ms. Mederos feels better today. She reports an episode this morning when she was in the bathroom and suddenly developed chest pressure and dizziness. She was assisted back to bed by nursing and her symptoms resolved. An EKG was done at that time. The patient initially reported that she "blacked out" but admitted that she was completely aware of the situation and just felt extremely weak. She feels as though she would have fallen if staff was not with her. She does admit to having significant anxiety about her symptoms and recovery process. She denies and further CP or dizziness since that episode. Denies SOB, N/V/D. Family History: Unchanged from Admission Social History: Unchanged from Admission Past Medical History: Unchanged from Admission Objective Active Medications: Acetaminophen (Tylenol Tab*) 650 mg PO Q8H PRN PAIN OR TEMPERATURE Albuterol (Ventolin Hfa Inhaler*) 1 puff INH Q4HR PRN SOB/WHEEZING Bisacodyl (Dulcolax Supp*) 10 mg NV DAILY PRN constipation Calcium Carbonate (Calcium Carbonate Tab*) 2,500 mg PO QAM MASTER Carvedilol (Coreg Tab*) 3.125 mg PO BID MASTER Citalopram Hydrobromide (Celexa Tab*) 20 mg PO QAM MASTER Cyanocobalamin (Vitamin B12 Inj *) 1,000 mcg IM MONTHLY MASTER Cyclobenzaprine HCl (Flexeril Tab*) 5 mg PO TID PRN SPASMS Diazepam (Valium Tab(*)) 10 mg PO TID MASTER Docusate Sodium (Colace Cap*) 100 mg PO BID MASTER Fluticasone Propionate (Flonase Nasal [place] 50mcg*) 1 spray INTRANASAL QAM PRN CONGESTION Furosemide (Lasix Tab*) 40 mg PO DAILY MASTER Heparin Sodium (Porcine) (Heparin Vial(*)) 5,000 units SUBCUT Q8HR MASTER Lactulose (Lactulose*) 30 ml PO Q6H PRN constipation Levalbuterol HCl (Xopenex 1.25 Mg/0.5 Ml Neb.Susy*) 1.25 mg INH [id number] AWAKE PRN SHORTNESS OF BREATH Levothyroxine Sodium (Synthroid Tab*) 125 mcg PO 0600 MASTER Magnesium Hydroxide (Milk Of Magnesia Liq*) 30 ml PO BID MASTER Magnesium Hydroxide (Milk Of Magnesia Liq*) 30 ml PO Q6H PRN constipation Melatonin (Melatonin) 9 mg PO BEDTIME PRN SLEEP Multivitamins (Theragran Tab*) 1 tab PO DAILY MASTER Nft: Glatiramer (Acetate 40 Mg Syr) 40 mg INJ MOWEFR MASTER Ondansetron HCl (Zofran Inj*) 4 mg IV Q6H PRN nausea Oxycodone HCl (Roxycodone Tab*) 10 mg PO Q4H PRN PAIN - SEVERE Oxycodone/Acetaminophen (Percocet 5/325 Tab*) 1 tab PO Q4H PRN PAIN Oxycodone/Acetaminophen (Percocet 5/325 Tab*) 2 tab PO Q4H PRN PAIN Pravastatin Sodium (Pravachol (Nf)) 20 mg PO QAM MASTER; Protocol Temazepam (Restoril Cap*) 15 mg PO BEDTIME PRN SLEEP Vital Signs - 8 hr 04/20/18 04/20/18 04/20/18 07:16 07:37 08:00 Temperature 97.4 F Pulse Rate 83 Respiratory 16 18 16 Rate Blood Pressure 104/65 (mmHg) O2 Sat by Pulse 97 Oximetry 04/20/18 04/20/18 04/20/18 08:26 09:26 11:14 Temperature 97.8 F Pulse Rate 89 Respiratory 18 18 14 Rate Blood Pressure 95/52 (mmHg) O2 Sat by Pulse 97 Oximetry Oxygen Devices in Use Now: None Appearance: Anxious appearing middle-aged female laying in bed in NAD Eyes: No Scleral Icterus Ears/Nose/Mouth/Throat: Mucous Membranes Moist Neck: NL Appearance and Movements; NL JVP Respiratory: Symmetrical Chest Expansion and Respiratory Effort, Clear to Auscultation Cardiovascular: NL Sounds; No Murmurs; No JVD, RRR Abdominal: NL Sounds; No Tenderness; No Distention Extremities: No Edema Skin: - - Surgical dressing to right knee Neurological: Alert and Oriented x 3, NL Sensation Lines/Tubes/Other Access: Clean, Dry and Intact Peripheral IV Nutrition: Taking PO's Result Diagrams: 04/20/18 05:19 04/18/18 05:10 Assess/Plan/Problems-Billing Assessment: Ms. Mederos is a 57yo F with PMH of asthma, HLD, SLE, hypothyroidism, anxiety, depression, multiple sclerosis, uterine CA, who was admitted for an elective right TKA revision and subsequently developed chest pressure. - Patient Problems (1) History of revision of total replacement of right knee joint Current Visit: Yes Status: Acute Code(s): Z96.651 - PRESENCE OF RIGHT ARTIFICIAL KNEE JOINT SNOMED Code(s): 375058689871278 Comment: - POD #3 - Management as per ortho (2) Chest pressure Current Visit: Yes Status: Acute Code(s): R07.89 - OTHER CHEST PAIN SNOMED Code(s): 743123546 Comment: - Associated with dyspnea and low SO2 - EKGs show no ischemic changes and troponin negative x3 - CTA negative for PE; US negative for DVT - Suspect this is 2/2 anxiety as there is no clear cardiac or respiratory cause (3) Anxiety Current Visit: Yes Status: Acute Code(s): F41.9 - ANXIETY DISORDER, UNSPECIFIED SNOMED Code(s): 55603525 Comment: - Continue Diazepam (4) HLD (hyperlipidemia) Current Visit: Yes Status: Acute Code(s): E78.5 - HYPERLIPIDEMIA, UNSPECIFIED SNOMED Code(s): 16927610 Comment: - Continue pravastatin (5) Multiple sclerosis Current Visit: Yes Status: Acute Code(s): G35 - MULTIPLE SCLEROSIS SNOMED Code(s): 24172063 Comment: - Continue Glatiramer MOWEFR (6) Hypothyroidism Current Visit: Yes Status: Acute Code(s): E03.9 - HYPOTHYROIDISM, UNSPECIFIED SNOMED Code(s): 59580080 Comment: - Continue Levothyroxine (7) DVT prophylaxis Current Visit: Yes Status: Acute Code(s): EXS6886 - SNOMED Code(s): 659717158 Comment: - Heparin/Warfarin as per Ortho (8) Full code status Current Visit: Yes Status: Acute Code(s): Z78.9 - OTHER SPECIFIED HEALTH STATUS SNOMED Code(s): 656505602 Status and Disposition: Inpatient. Thank you for this consultation. Hospitalist service will continue to follow with you, but she can likely be d/c'd home tomorrow. Attending: Angle Pike
[2018-04-21] MEDS: oxyCODONE/Acetamin 5/325 MG* TAB PO PRN ×2 (03:12→08:43)
[2018-04-21] MEDS: Levothyroxine TAB* 125 MCG TAB PO SCH (05:18)
[2018-04-21 05:48] LABS: Hematocrit 33 % (35-47); Hemoglobin 11.1 g/dl (12.0-16.0); Mean Platelet Volume 8.8 fL (7.4-10.4); Platelet Count 174 10^3/ul (150-450)
[2018-04-21 05:49] LABS: INR 4.15 (0.77-1.02)
[2018-04-21] MEDS: Carvedilol TAB* 3.125 MG PO SCH (08:41)
[2018-04-21] MEDS: Calcium Carbonate TAB* 1250 MG (CALCIUM 500 MG) PO SCH (08:42)
[2018-04-21] MEDS: Diazepam TAB(*) 5 MG PO SCH (08:42)
[2018-04-21] MEDS: Citalopram TAB* 20 MG PO SCH (08:42)
[2018-04-21] MEDS: Furosemide TAB* 40 MG PO SCH (08:42)
[2018-04-21] MEDS: CMC:Pravastatin (NF) 20 MG TAB PO SCH (08:43)
[2018-04-21] MEDS: Vitamin THERAPEUTIC TAB PO SCH (08:43)
[2018-04-21] MEDS: Magnesium Hydroxide LIQ* 30 ML UDC PO SCH (08:44)
[2018-04-21] MEDS: Docusate CAP* 100 MG PO SCH (08:44)
[2018-04-21] MEDS: oxyCODONE TAB* 5 MG TAB PO PRN (12:30)
[2018-04-21 12:51] VITALS: BP 99/61
--- NOTE | 2018-04-21 21:41 | DS ---
DISCHARGE SUMMARY: DATE OF ADMISSION: 04/17/18 DATE OF DISCHARGE: 04/21/18 ATTENDING PHYSICIAN: Stoney Velasco MD.* (DICTATED BY RONALDO MORALES) ADMISSION DIAGNOSIS: Loose right tibial component, total knee arthroplasty. DISCHARGE DIAGNOSIS: Loose right tibial component, total knee arthroplasty. SURGERY PERFORMED: Revision, right tibial component. HOSPITAL COURSE: The patient is a 57-year-old female who underwent right total knee arthroplasty as a revision to a partial knee arthroplasty in [place] in 2011. The patient had developed increased pain and tenderness with ambulation about the proximal tibia and did have workup including CRP, ESR testing, and an x-ray that appeared to show sclerosis line about the tibial component and a bone scan with positive uptake indicative of a loose tibial component. The patient elected to proceed with revision surgery and was taken to the operating room under the care of Dr. Stoney Velasco on date of 04/17/18. She tolerated the procedure well and left the operating room in stable condition. Postoperatively, she had some difficulties with feeling short of breath at one occasion. She did have a full workup including EKG, chest CT, venous Doppler study, all of which failed to show any vascular or cardiac abnormality. It was felt that her symptoms could be possibly due to some anxiety. She did progress with her physical therapy and occupational therapy goals, bearing weight as tolerated on the right lower extremity. She felt well on the morning of and felt that she was ready for discharge home later in the afternoon with [facility]. CONDITION ON DISCHARGE: The patient's vital signs show a temperature of 98, pulse 99, respiratory rate 16, O2 sats 95% on room air, blood pressure 97/63. Her right knee incision is healing without erythema or evidence of infection. There is some mild erythema to the medial aspect of the thigh without noted swelling, significants warmth or evidence of cellulitis. Her calf is soft and nontender. She has active dorsiflexion of the right ankle. Her sensation is intact distally. PLAN: Discharged to home with visiting nursing services. She may continue to bear weight as tolerated on the right lower extremity. She will continue with physical therapy, with home PT. She will use Lovenox 30 mg subcu daily for her DVT prophylaxis. A prescription is provided. She is also provided with a prescription of Percocet 5/325 mg #30 without refills one p.o. q.4 hours p.r.n. pain. These were both sent to her pharmacy in [place] at [facility]. She will follow up with Dr. Velasco as scheduled within 3 to 4 weeks. If she has any other concerns or issues, the office will be contact prior to her scheduled followup. RONALDO MORALES [id number]/MARJAN #: [id number] CRISPIN
== END 2018-04-21 13:05 | disposition home health service (06) | DRG 468 ==
LOC: AA 06:04 → SSU 12:29
PROVIDERS: ADMIT Orthopaedic Surgery; ATTEND Orthopaedic Surgery
PROC: 0SRV0J9 Replacement of Right Knee Joint, Tibial Surface with Synthetic Substitute, Cemented, Open Approach (ICD-10-PCS; 2018-04-17)
PROC: 0SPV0JZ Removal of Synthetic Substitute from Right Knee Joint, Tibial Surface, Open Approach (ICD-10-PCS; principal; 2018-04-17 07:30)
DX: T84.032A Mechanical loosening of internal right knee prosthetic joint, initial encounter (principal); Z96.651 Presence of right artificial knee joint; J45.909 Unspecified asthma, uncomplicated; M32.9 Systemic lupus erythematosus, unspecified; E03.9 Hypothyroidism, unspecified; E78.5 Hyperlipidemia, unspecified; F41.9 Anxiety disorder, unspecified; F32.9 Major depressive disorder, single episode, unspecified; G35 Multiple sclerosis; M81.0 Age-related osteoporosis without current pathological fracture; F43.10 Post-traumatic stress disorder, unspecified; M25.461 Effusion, right knee; R07.89 Other chest pain; R06.00 Dyspnea, unspecified; Z85.42 Personal history of malignant neoplasm of other parts of uterus; Z90.710 Acquired absence of both cervix and uterus; Z98.84 Bariatric surgery status; Z88.5 Allergy status to narcotic agent; Z91.040 Latex allergy status; Z82.49 Family history of ischemic heart disease and other diseases of the circulatory system; Z82.61 Family history of arthritis; Z80.9 Family history of malignant neoplasm, unspecified; Z23 Encounter for immunization
CPT/HCPCS: 36415; 71275; 80053; 81003; 81015; 83735; 84100; 84484; 85014; 85018; 85025; 85049; 85610; 87086; 88300; 90686; 93005; 94640; A9270-GY; C1776; G8978-GP-CJ; G8979-GP-CI; G8987-GO-CI; G8988-GO-CI; G8989-GO-CI; J0690; J1100; J1170; J1644; J1885; J1940; J2250; J2270; J2405; J2704; J3010; Q9967

== ENCOUNTER 2020-06-08 00:13 | Inpatient (IN) ==
[2020-06-08] MEDS ORDERED: methylPREDNISolone 125 mg 2 ML VIAL IV ONE (02:00)
[2020-06-08] MEDS ORDERED: NS 0.9% 1000 ml BAG 1,000 ML IV ONE (02:00)
[2020-06-08 02:52] LABS: ABS Eosinophils 0.1 10^3/ul (0-0.6); ABS Lymphocytes 2.1 10^3/ul (1.0-4.8); ABS Monocytes 0.5 10^3/ul (0-0.8); ABS Neutrophils 3.5 10^3/ul (1.5-7.7); Eosinophil % 2.2 %; Hematocrit 44 % (35-47); Hemoglobin 14.6 g/dL (12.0-16.0); Lymphocyte % 33.7 %; Mean Corpuscular HGB Conc 33 g/dL (31-36); Mean Corpuscular Hemoglobin 29 pg (27-31); Mean Corpuscular Volume 89 fL (80-97); Mean Platelet Volume 9.2 fL (7.4-10.4); Nucleated Red Blood Cells % 0.1; Platelet Count 208 10^3/uL (150-450); Red Blood Count 4.98 10^6 /uL (3.70-4.87); Red Cell Distribution Width 14 % (10-15); White Blood Count 6.2 10^3/uL (3.5-10.8)
[2020-06-08 03:05] LABS: INR 0.94 (0.82-1.09)
[2020-06-08 03:07] LABS: Albumin/Globulin Ratio 1.5 (1-3); BUN/Creatinine Ratio 7.2 (8-20); Calcium 8.9 mg/dL (8.6-10.3); EGFR African American 61.3 (>60); EGFR Non-African American 50.7 (>60); Globulin 2.6 g/dL (2-4); Potassium 3.9 mmol/L (3.5-5.0); Total Bilirubin 0.3 mg/dL (0.2-1.0); Total Protein 6.6 g/dL (6.4-8.9)
[2020-06-08 04:11] LABS: Urine Appearance Cloudy; Urine Bilirubin Negative (Negative); Urine Blood Negative (Negative); Urine Color Yellow; Urine Glucose Negative (Negative); Urine Ketones Negative (Negative); Urine Nitrite Positive (Negative); Urine Protein Negative (Negative); Urine Specific Gravity 1.016 (1.010-1.030); Urine Urobilinogen Negative (Negative)
[2020-06-08 04:13] LABS: Urine Bacteria 1+ (Absent); Urine Red Blood Cell 1+(3-5/hpf) (Absent); Urine Squamous Epithelial Cell Present (Absent); Urine White Blood Cell 2+(11-20/hpf) (Absent)
[2020-06-08] MEDS ORDERED: cefTRIAXone 2 GM ADDV.VIAL 2 GM in NS 0.9% 100 ml BAG 100 ML IVPB ONE (04:16)
[2020-06-08 04:36] LABS: Urine Benzodiazepine Screen Presumptive Positive (None Detect); Urine Cannabinoids Screen None Detected (None Detect); Urine Opiates Screen Presumptive Positive (None Detect)
[2020-06-08] MEDS ORDERED: Ondansetron 4 mg VIAL 2 MG/ML 2 ml VIAL IV PRN (05:19)
[2020-06-08] MEDS ORDERED: Albuterol HFA INHALER 8 gm MDI INH PRN (05:23)
[2020-06-08] MEDS ORDERED: NS 0.9% 1000 ml BAG 1,000 ML IV SCH (05:30)
[2020-06-08] MEDS: Cholecalciferol (VIT D3) 1,000 unit TAB PO SCH (10:50)
[2020-06-08] MEDS: Calcium (OSCAL) 500 mg TAB PO SCH (10:50)
[2020-06-08] MEDS: Potassium Chlor 20 meq TAB.ER PO SCH (10:50)
[2020-06-08] MEDS: CMC:Pravastatin 20 mg TAB (NF) PO SCH (10:51)
[2020-06-08] MEDS: oxyCODONE/Acetamin 5/325 mg TAB PO PRN ×2 (12:36→21:20)
[2020-06-08 17:06] LABS: TSH Ultra Thyroid Stim Horm 3.05 mcIU/mL (0.34-5.60)
[2020-06-08 17:20] LABS: Vitamin D Total 25(OH) 67.7 ng/mL (20-50)
[2020-06-09] MEDS: cefTRIAXone 1 gm/50 mL NS BAG 1 GM/50 ML BAG IVPB SCH (04:38)
[2020-06-09 05:22] LABS: INR 0.95 (0.82-1.09)
[2020-06-09 05:38] LABS: BUN/Creatinine Ratio 11.4 (8-20); EGFR African American 65.4 (>60); Potassium 3.6 mmol/L (3.5-5.0)
[2020-06-09] MEDS: Calcium (OSCAL) 500 mg TAB PO SCH (08:47)
[2020-06-09] MEDS: Cholecalciferol (VIT D3) 1,000 unit TAB PO SCH (08:47)
[2020-06-09] MEDS: CMC:Pravastatin 20 mg TAB (NF) PO SCH (08:48)
[2020-06-09] MEDS: Potassium Chlor 20 meq TAB.ER PO SCH (08:48)
[2020-06-09] MEDS ORDERED: Gadoteridol (CONTRAST) 279.3 MG/ML 10 ML IV ONE (11:56)
[2020-06-09] MEDS ORDERED: methylPREDNISolone SOD SUCC 1,000 MG in NS 0.9% 1000 ml BAG 1,000 ML IVPB ONE (16:17)
[2020-06-09] MEDS ORDERED: methylPREDNISolone SOD SUCC 1,000 MG in NS 0.9% 250 ml 250 ML IVPB ONE (16:30)
[2020-06-10 05:46] LABS: ABS Lymphocytes 0.6 10^3/ul (1.0-4.8); ABS Neutrophils 4.9 10^3/ul (1.5-7.7); Hematocrit 38 % (35-47); Hemoglobin 12.9 g/dL (12.0-16.0); Lymphocyte % 11.3 %; Mean Corpuscular HGB Conc 34 g/dL (31-36); Mean Corpuscular Hemoglobin 30 pg (27-31); Mean Corpuscular Volume 87 fL (80-97); Mean Platelet Volume 8.6 fL (7.4-10.4); Platelet Count 167 10^3/uL (150-450); Red Blood Count 4.37 10^6 /uL (3.70-4.87); Red Cell Distribution Width 14 % (10-15); White Blood Count 5.5 10^3/uL (3.5-10.8)
[2020-06-10] MEDS: cefTRIAXone 1 gm/50 mL NS BAG 1 GM/50 ML BAG IVPB SCH (05:50)
[2020-06-10 06:08] LABS: BUN/Creatinine Ratio 13.2 (8-20); Calcium 8.2 mg/dL (8.6-10.3); EGFR African American 77.1 (>60); EGFR Non-African American 63.7 (>60); Potassium 4.2 mmol/L (3.5-5.0)
[2020-06-10] MEDS ORDERED: Glatiramer(NF) 20 MG/ML 1 ML SYRINGE SUBCUT SCH (09:00)
[2020-06-10] MEDS: Calcium (OSCAL) 500 mg TAB PO SCH (09:33)
[2020-06-10] MEDS: Cholecalciferol (VIT D3) 1,000 unit TAB PO SCH (09:33)
[2020-06-10] MEDS: CMC:Pravastatin 20 mg TAB (NF) PO SCH (09:34)
[2020-06-10] MEDS: Potassium Chlor 20 meq TAB.ER PO SCH (09:34)
[2020-06-10] MEDS ORDERED: Pantoprazole VIAL 40 MG VIAL IV SCH (15:00)
[2020-06-10] MEDS ORDERED: methylPREDNISolone SOD SUCC 1,000 MG in NS 0.9% 250 ml 250 ML IVPB ONE (16:30)
[2020-06-10] MEDS ORDERED: PTO: Glatiramer(NF) 20 MG/ML 1 ML SYRINGE SUBCUT ONE (17:00)
[2020-06-11] MEDS: cefTRIAXone 1 gm/50 mL NS BAG 1 GM/50 ML BAG IVPB SCH (05:45)
[2020-06-11] MEDS: Cholecalciferol (VIT D3) 1,000 unit TAB PO SCH (08:24)
[2020-06-11] MEDS: Calcium (OSCAL) 500 mg TAB PO SCH (08:24)
[2020-06-11] MEDS: Potassium Chlor 20 meq TAB.ER PO SCH (08:25)
[2020-06-11] MEDS: CMC:Pravastatin 20 mg TAB (NF) PO SCH (08:54)
[2020-06-11 11:39] VITALS: BP 117/72
[2020-06-11] MEDS ORDERED: methylPREDNISolone SOD SUCC 1,000 MG in NS 0.9% 250 ml 250 ML IVPB ONE (12:00)
== END 2020-06-11 13:45 | disposition home or self-care (01) | DRG 59 ==
LOC: ED 00:13 → MEDTELE 00:13 → SSU 06-09 05:35
PROVIDERS: ADMIT Internal Medicine; ATTEND Internal Medicine

== ENCOUNTER 2022-07-26 11:18 | Inpatient (IN) ==
[2022-07-26 16:39] LABS: ABS Lymphocytes 1.2 10^3/ul (1.0-4.8); ABS Monocytes 0.3 10^3/ul (0-0.8); ABS Neutrophils 3.4 10^3/ul (1.5-7.7); Eosinophil % 0.8 %; Hematocrit 43 % (35-47); Hemoglobin 14.3 g/dL (12.0-16.0); Lymphocyte % 23.5 %; Mean Corpuscular HGB Conc 33 g/dL (31-36); Mean Corpuscular Hemoglobin 28 pg (27-31); Mean Corpuscular Volume 85 fL (80-97); Mean Platelet Volume 8.8 fL (7.4-10.4); Nucleated Red Blood Cells % 0.1; Platelet Count 169 10^3/uL (150-450); Red Blood Count 5.09 10^6 /uL (3.70-4.87); Red Cell Distribution Width 13 % (10-15)
[2022-07-26 16:54] LABS: Activated Partial Thrombo Time 30.8 seconds (26.0-38.0); INR 0.96 (0.88-1.18)
[2022-07-26 16:59] LABS: Urine Appearance Cloudy; Urine Bilirubin Negative (Negative); Urine Blood 1+ (Negative); Urine Color Amber; Urine Glucose Negative (Negative); Urine Ketones Trace (Negative); Urine Nitrite Positive (Negative); Urine Protein Negative (Negative); Urine Specific Gravity 1.021 (1.002-1.030); Urine Urobilinogen Negative (Negative)
[2022-07-26 17:06] LABS: Urine Bacteria 3+ (Absent); Urine Red Blood Cell 1+(3-5/hpf) (Absent); Urine Squamous Epithelial Cell Present (Absent); Urine White Blood Cell 3+(>20/hpf) (Absent)
[2022-07-26 17:20] LABS: Albumin 3.8 g/dL (3.2-5.2); Albumin/Globulin Ratio 1.9 (1-3); C Reactive Protein 2.41 mg/L (<8.01); Calcium 8.9 mg/dL (8.6-10.3); Creatinine, Serum 0.97 mg/dL (0.51-0.95); Potassium 4.1 mmol/L (3.5-5.0); Total Bilirubin 0.3 mg/dL (0.2-1.0); Total Protein 5.8 g/dL (6.4-8.9); eGFR CKD-EPI 66.9 (>60)
[2022-07-26] MEDS ORDERED: cefTRIAXone 1 gm/50 mL D5W 1 GM/50 ML BAG IV ONE (18:02)
[2022-07-26] MEDS ORDERED: methylPREDNISolone SOD SUCC 1000 MG ML VIAL IVPB ONE (18:02)
[2022-07-26 18:08] LABS: High Sensitivity Troponin 1 Hr 3 pg/mL (<15)
[2022-07-26] MEDS ORDERED: Albuterol HFA INHALER 8 gm MDI INH PRN (19:31)
[2022-07-26] MEDS ORDERED: methylPREDNISolone SOD SUCC 1000 MG in NS 0.9% 100 ML IVPB ONE (20:00)
[2022-07-26] MEDS: GLATIRAMER ACETATE 40 MG/ML SUBCUT SCH (20:24)
[2022-07-26 20:54] LABS: Albumin 3.8 g/dL (3.2-5.2); Albumin/Globulin Ratio 1.9 (1-3); Calcium 8.8 mg/dL (8.6-10.3); Creatinine, Serum 0.93 mg/dL (0.51-0.95); Total Bilirubin 0.3 mg/dL (0.2-1.0); Total Protein 5.8 g/dL (6.4-8.9); eGFR CKD-EPI 70.4 (>60)
[2022-07-26] MEDS ORDERED: ZOLMitriptan 5 mg ODT (NF) PO PRN (21:29)
[2022-07-26] MEDS: Enoxaparin 40 MG/0.4 ML SYR SUBCUT SCH (21:51)
[2022-07-27] MEDS ORDERED: Al Hydrox/Mg Hydrox/Simet LIQ 30 ML UDC PO ONE (04:00)
[2022-07-27 04:03] LABS: ABS Lymphocytes 0.4 10^3/ul (1.0-4.8); ABS Neutrophils 4.2 10^3/ul (1.5-7.7); Eosinophil % 0.1 %; Hematocrit 44 % (35-47); Hemoglobin 14.6 g/dL (12.0-16.0); Lymphocyte % 9.5 %; Mean Corpuscular HGB Conc 33 g/dL (31-36); Mean Corpuscular Hemoglobin 28 pg (27-31); Mean Corpuscular Volume 85 fL (80-97); Mean Platelet Volume 9.3 fL (7.4-10.4); Platelet Count 158 10^3/uL (150-450); Red Blood Count 5.21 10^6 /uL (3.70-4.87); Red Cell Distribution Width 13 % (10-15); White Blood Count 4.7 10^3/uL (3.5-10.8)
[2022-07-27 04:25] LABS: High Sensitivity Troponin 1 Hr < 3 pg/mL (<15)
[2022-07-27 04:48] LABS: Albumin 3.7 g/dL (3.2-5.2); Albumin/Globulin Ratio 1.8 (1-3); Calcium 8.8 mg/dL (8.6-10.3); Globulin 2.1 g/dL (2-4); Potassium 4.1 mmol/L (3.5-5.0); Total Bilirubin 0.3 mg/dL (0.2-1.0); Total Protein 5.8 g/dL (6.4-8.9); eGFR CKD-EPI 64.5 (>60)
[2022-07-27] MEDS: Potassium Chlor 10 meq TAB PO SCH (08:08)
[2022-07-27] MEDS: Pravastatin 20 mg TAB (NF) PO SCH (08:08)
[2022-07-27 08:28] LABS: TSH Ultra Thyroid Stim Horm 0.01 mcIU/mL (0.34-5.60)
[2022-07-27] MEDS: cefTRIAXone 1 gm/50 mL D5W 1 GM/50 ML BAG IV SCH (09:51)
[2022-07-27 10:08] LABS: T4, Total 21.44 mcg/dL (6.09-12.23)
[2022-07-27 10:13] LABS: Free T3 2.9 pg/mL (2.5-3.9)
[2022-07-27] MEDS ORDERED: CMCS: ZOLMitriptan 5 mg ODT (NF) PO PRN (12:11)
[2022-07-27] MEDS ORDERED: Gadoteridol (CONTRAST) 279.3 MG/ML 10 ML IV ONE (13:51)
[2022-07-27] MEDS ORDERED: methylPREDNISolone SOD 125 mg 1,000 MG in NS 0.9% 100 ml BAG 100 ML IV SCH (15:00)
[2022-07-27] MEDS: CMCS: ZOLMitriptan 5 mg ODT (NF) SL PRN (15:12)
[2022-07-27] MEDS: methylPREDNISolone SOD SUCC 1000 MG in NS 0.9% 100 ML IVPB SCH (15:58)
[2022-07-27] MEDS: Enoxaparin 40 MG/0.4 ML SYR SUBCUT SCH (21:30)
[2022-07-28 00:21] LABS: Free T4 1.97 ng/dL (0.61-1.12)
[2022-07-28 06:48] LABS: ABS Lymphocytes 0.6 10^3/ul (1.0-4.8); ABS Monocytes 0.1 10^3/ul (0-0.8); ABS Neutrophils 8.5 10^3/ul (1.5-7.7); ABS Nucleated RBC 0.1 10^3/ul; Hematocrit 40 % (35-47); Hemoglobin 13.4 g/dL (12.0-16.0); Lymphocyte % 6.3 %; Mean Corpuscular HGB Conc 33 g/dL (31-36); Mean Corpuscular Hemoglobin 28 pg (27-31); Mean Corpuscular Volume 85 fL (80-97); Mean Platelet Volume 9.8 fL (7.4-10.4); Platelet Count 163 10^3/uL (150-450); Red Blood Count 4.73 10^6 /uL (3.70-4.87); Red Cell Distribution Width 13 % (10-15); White Blood Count 9.2 10^3/uL (3.5-10.8)
[2022-07-28 07:07] LABS: Calcium 8.9 mg/dL (8.6-10.3); Creatinine, Serum 0.99 mg/dL (0.51-0.95); Magnesium 2.1 mg/dL (1.9-2.7); Potassium 3.9 mmol/L (3.5-5.0); eGFR CKD-EPI 65.3 (>60)
[2022-07-28] MEDS: Potassium Chlor 10 meq TAB PO SCH (08:29)
[2022-07-28] MEDS: methylPREDNISolone SOD SUCC 1000 MG in NS 0.9% 100 ML IVPB SCH (08:29)
[2022-07-28] MEDS: Pravastatin 20 mg TAB (NF) PO SCH (08:29)
[2022-07-28] MEDS: cefTRIAXone 1 gm/50 mL D5W 1 GM/50 ML BAG IV SCH (09:53)
[2022-07-28] MEDS: Polyethylene Glycol 3350 17 GM PACKET PO SCH ×2 (11:43→22:39)
[2022-07-28 14:09] LABS: High Sensitivity Troponin 1 Hr 6 pg/mL (<15)
[2022-07-28] MEDS: CMCS: ZOLMitriptan 5 mg ODT (NF) SL PRN (15:40)
[2022-07-28] MEDS: Acetaminophen IV 1 GM/100ML 1,000 MG/100 ML BAG IV PRN ×2 (20:05→21:39)
[2022-07-28] MEDS: Al Hydrox/Mg Hydrox/Simet LIQ 30 ML UDC PO PRN (20:07)
[2022-07-28] MEDS: GLATIRAMER ACETATE 40 MG/ML SUBCUT SCH (20:08)
[2022-07-28] MEDS: Enoxaparin 40 MG/0.4 ML SYR SUBCUT SCH (22:38)
[2022-07-28] MEDS: Senna TAB 8.6 mg TAB PO PRN (22:39)
[2022-07-29] MEDS ORDERED: Albuterol HFA INHALER 8 gm MDI INH PRN (08:12)
[2022-07-29 08:31] LABS: ABS Monocytes 0.4 10^3/ul (0-0.8); ABS Neutrophils 6.6 10^3/ul (1.5-7.7); Hematocrit 38 % (35-47); Hemoglobin 12.3 g/dL (12.0-16.0); Lymphocyte % 12.6 %; Mean Corpuscular HGB Conc 33 g/dL (31-36); Mean Corpuscular Hemoglobin 28 pg (27-31); Mean Corpuscular Volume 86 fL (80-97); Mean Platelet Volume 9.1 fL (7.4-10.4); Platelet Count 140 10^3/uL (150-450); Red Blood Count 4.39 10^6 /uL (3.70-4.87); Red Cell Distribution Width 13 % (10-15)
[2022-07-29 09:36] LABS: Calcium 8.2 mg/dL (8.6-10.3); Creatinine, Serum 0.89 mg/dL (0.51-0.95); Magnesium 2.2 mg/dL (1.9-2.7); eGFR CKD-EPI 74.2 (>60)
[2022-07-29] MEDS: Polyethylene Glycol 3350 17 GM PACKET PO SCH ×2 (10:12→20:58)
[2022-07-29] MEDS: cefTRIAXone 1 gm/50 mL D5W 1 GM/50 ML BAG IV SCH (10:12)
[2022-07-29] MEDS: Al Hydrox/Mg Hydrox/Simet LIQ 30 ML UDC PO PRN ×2 (10:13→20:57)
[2022-07-29] MEDS: Senna TAB 8.6 mg TAB PO PRN (10:13)
[2022-07-29] MEDS: Pravastatin 20 mg TAB (NF) PO SCH (10:13)
[2022-07-29] MEDS: Potassium Chlor 10 meq TAB PO SCH (10:13)
[2022-07-29 11:01] LABS: Copper, S 91 mcg/dL (77-206)
[2022-07-29] MEDS ORDERED: methylPREDNISolone SOD SUCC 1,000 MG in NS 0.9% 100 ml BAG 100 ML IVPB ONE (12:19)
[2022-07-29] MEDS ORDERED: Magnesium CITRATE LIQ 300 ML BTL PO ONE (12:21)
[2022-07-29 12:27] LABS: C Reactive Protein 1.25 mg/L (<8.01)
[2022-07-29] MEDS ORDERED: Magnesium CITRATE LIQ 300 ML BTL PO PRN (12:31)
[2022-07-29] MEDS: Ondansetron ODT 4 mg TAB 4 MG TAB PO PRN (12:40)
[2022-07-29] MEDS: Magnesium Hydroxide LIQ 30 ML UDC PO PRN (18:25)
[2022-07-29] MEDS: Enoxaparin 40 MG/0.4 ML SYR SUBCUT SCH (20:56)
[2022-07-29] MEDS: Acetaminophen IV 1 GM/100ML 1,000 MG/100 ML BAG IV PRN (20:57)
[2022-07-30 07:44] LABS: Blood Urea Nitrogen 14 mg/dL (6-24); CO2 Carbon Dioxide 33 mmol/L (22-32); Calcium 7.9 mg/dL (8.6-10.3); Chloride 104 mmol/L (101-111); Creatinine, Serum 0.83 mg/dL (0.51-0.95); Glucose 133 mg/dL (70-100); Magnesium 2.3 mg/dL (1.9-2.7); Potassium 4.3 mmol/L (3.5-5.0); Sodium 137 mmol/L (135-145); eGFR CKD-EPI 80.7 (>60)
[2022-07-30 08:39] LABS: ABS Lymphocytes 0.5 10^3/ul (1.0-4.8); ABS Monocytes 0.1 10^3/ul (0-0.8); ABS Neutrophils 3.3 10^3/ul (1.5-7.7); Eosinophil % 0.1 %; Hematocrit 37 % (35-47); Mean Corpuscular HGB Conc 33 g/dL (31-36); Mean Corpuscular Hemoglobin 28 pg (27-31); Mean Corpuscular Volume 85 fL (80-97); Mean Platelet Volume 10.2 fL (7.4-10.4); Nucleated Red Blood Cells % 0.1; Platelet Count 127 10^3/uL (150-450); Red Blood Count 4.31 10^6 /uL (3.70-4.87); Red Cell Distribution Width 13 % (10-15); White Blood Count 3.9 10^3/uL (3.5-10.8)
[2022-07-30] MEDS: Polyethylene Glycol 3350 17 GM PACKET PO SCH ×2 (09:35→21:58)
[2022-07-30] MEDS: Pravastatin 20 mg TAB (NF) PO SCH (09:36)
[2022-07-30] MEDS: Potassium Chlor 10 meq TAB PO SCH (09:36)
[2022-07-30] MEDS: cefTRIAXone 1 gm/50 mL D5W 1 GM/50 ML BAG IV SCH (09:37)
[2022-07-30] MEDS: Acetaminophen IV 1 GM/100ML 1,000 MG/100 ML BAG IV PRN ×2 (10:40→22:06)
[2022-07-30] MEDS ORDERED: Lactulose 30 ml UDC PO ONE (15:02)
[2022-07-30] MEDS: Enoxaparin 40 MG/0.4 ML SYR SUBCUT SCH (21:58)
[2022-07-30] MEDS: GLATIRAMER ACETATE 40 MG/ML SUBCUT SCH (22:17)
[2022-07-30] MEDS: Albuterol 2.5mg/3 ml (0.083%) NEB.SOLN INH PRN (22:24)
[2022-07-31] MEDS: Pravastatin 20 mg TAB (NF) PO SCH (09:12)
[2022-07-31] MEDS: Polyethylene Glycol 3350 17 GM PACKET PO SCH ×2 (09:12→21:09)
[2022-07-31] MEDS: Potassium Chlor 10 meq TAB PO SCH (09:12)
[2022-07-31] MEDS: Ondansetron ODT 4 mg TAB 4 MG TAB PO PRN (09:29)
[2022-07-31] MEDS: Acetaminophen IV 1 GM/100ML 1,000 MG/100 ML BAG IV PRN ×2 (13:17→23:14)
[2022-07-31] MEDS: CMCS: ZOLMitriptan 5 mg ODT (NF) SL PRN (15:22)
[2022-07-31] MEDS ORDERED: Sodium Phosphate ADULT ENEMA 133 ML BTL PR PRN (16:45)
[2022-07-31] MEDS: Magnesium Hydroxide LIQ 30 ML UDC PO PRN (21:09)
[2022-07-31] MEDS: Enoxaparin 40 MG/0.4 ML SYR SUBCUT SCH (21:13)
[2022-07-31] MEDS: Albuterol 2.5mg/3 ml (0.083%) NEB.SOLN INH PRN (22:00)
[2022-08-01 00:26] LABS: Thyroid Peroxidase Antibodies 19.19 IU/mL (<9)
[2022-08-01 00:40] LABS: Thyroglobulin Antibody II 0.2 IU/mL (<4.0)
[2022-08-01] MEDS: Polyethylene Glycol 3350 17 GM PACKET PO SCH ×2 (09:19→21:13)
[2022-08-01] MEDS: Magnesium Hydroxide LIQ 30 ML UDC PO PRN (09:20)
[2022-08-01] MEDS: Potassium Chlor 10 meq TAB PO SCH (09:20)
[2022-08-01] MEDS: Pravastatin 20 mg TAB (NF) PO SCH (09:20)
[2022-08-01] MEDS: Acetaminophen IV 1 GM/100ML 1,000 MG/100 ML BAG IV PRN (15:14)
[2022-08-01 16:16] LABS: Urine Appearance Cloudy; Urine Bilirubin Negative (Negative); Urine Blood Negative (Negative); Urine Color Yellow; Urine Glucose Negative (Negative); Urine Ketones Negative (Negative); Urine Nitrite Negative (Negative); Urine Protein Negative (Negative); Urine Specific Gravity 1.021 (1.002-1.030); Urine Urobilinogen Negative (Negative)
[2022-08-01] MEDS: Enoxaparin 40 MG/0.4 ML SYR SUBCUT SCH (21:12)
[2022-08-02] MEDS: Al Hydrox/Mg Hydrox/Simet LIQ 30 ML UDC PO PRN (03:45)
[2022-08-02] MEDS: Polyethylene Glycol 3350 17 GM PACKET PO SCH (09:03)
[2022-08-02] MEDS: Pravastatin 20 mg TAB (NF) PO SCH (09:03)
[2022-08-02] MEDS: Potassium Chlor 10 meq TAB PO SCH (09:03)
[2022-08-02] MEDS: CMCS: ZOLMitriptan 5 mg ODT (NF) SL PRN (09:08)
[2022-08-02] MEDS: Ondansetron ODT 4 mg TAB 4 MG TAB PO PRN (09:08)
[2022-08-02] MEDS: Acetaminophen IV 1 GM/100ML 1,000 MG/100 ML BAG IV PRN (09:14)
[2022-08-02 14:05] VITALS: BP 111/74
== END 2022-08-02 17:15 | disposition home or self-care (01) | DRG 59 ==
LOC: ED 11:18 → EDHOLD 18:35 → SUATTDRO 18:35 → MED 21:15
PROVIDERS: ADMIT Internal Medicine; ATTEND Internal Medicine

== ENCOUNTER 2023-02-02 10:06 | Inpatient (IN) ==
[2023-02-02 10:36] LABS: INR 1.5 (0.83-1.13)
[2023-02-02 10:44] LABS: ABS Eosinophils 0.1 10^3/uL (0.0-0.5); ABS Lymphocytes 1.3 10^3/uL (1.0-4.8); ABS Monocytes 0.6 10^3/uL (0.0-0.9); ABS Neutrophils 3.1 10^3/uL (1.5-7.6); ABS Nucleated RBC 0.02 10^3/ul; Eosinophil % 1.4 %; Hemoglobin 13.4 g/dL (11.5-14.3); Mean Corpuscular Hgb Conc 34.2 g/dL (31-36); Mean Corpuscular Volume 81.9 fL (80-97); Mean Platelet Volume 9.4 fL (7.5-11.2); Nucleated Red Blood Cells % 0.4 /100 WBC (0.0-0.4); Platelet Count 184 10^3/uL (150-450); Red Blood Count 4.76 10^6/uL (3.63-4.92)
[2023-02-02 11:10] LABS: Albumin 3.7 g/dL (3.2-5.2); Calcium 8.8 mg/dL (8.6-10.3); Potassium 3.9 mmol/L (3.5-5.0); Total Bilirubin 0.5 mg/dL (0.2-1.0)
[2023-02-02 11:16] LABS: Albumin/Globulin Ratio 1.4 (1-3); Creatinine, Serum 1.19 mg/dL (0.51-0.95); Globulin 2.6 g/dL (2-4); Total Protein 6.3 g/dL (6.4-8.9); eGFR CKD-EPI 52.3 (>60)
[2023-02-02] MEDS ORDERED: Lactated Ringers 1000 ml BAG 1,000 ML IV ONE (11:40)
[2023-02-02] MEDS ORDERED: Lactated Ringers 1000 ml BAG 1,000 ML IV SCH (12:00)
[2023-02-02 12:41] LABS: High Sensitivity Troponin 1 Hr 5 pg/mL (<15)
[2023-02-02] MEDS ORDERED: Pantoprazole VIAL 40 MG VIAL IV ONE (13:08)
[2023-02-02 13:43] LABS: Magnesium 1.5 mg/dL (1.9-2.7)
[2023-02-02] MEDS ORDERED: Magnesium Sulfate IV 1GM/100ML 1 GM/100 ML BAG IV ONE (14:47)
[2023-02-02] MEDS ORDERED: Iodixanol (CONTRAST) 320 MG/ML 100 ML SDV IV ONE (14:56)
[2023-02-02] MEDS ORDERED: Albuterol HFA INHALER 8 gm MDI INH PRN (17:02)
[2023-02-02] MEDS ORDERED: GLATIRAMER 40 MG/ML SUBCUT SCH (17:15)
[2023-02-02] MEDS ORDERED: Magnesium Sulfate 2 gm BAG 2 GM/50 ML BAG IVPB ONE (17:32)
[2023-02-02] MEDS: GLATIRAMER 40 MG/ML SUBCUT SCH (19:41)
[2023-02-02] MEDS: Ondansetron 4 mg VIAL 2 MG/ML 2 ml VIAL IV PRN (22:09)
[2023-02-03 06:13] LABS: ABS Lymphocytes 1.3 10^3/uL (1.0-4.8); ABS Monocytes 0.3 10^3/uL (0.0-0.9); ABS Neutrophils 1.8 10^3/uL (1.5-7.6); ABS Nucleated RBC 0.01 10^3/ul; Eosinophil % 1.2 %; Hematocrit 31.1 % (35-45); Hemoglobin 10.9 g/dL (11.5-14.3); Lymphocyte % 37.6 %; Mean Corpuscular Hemoglobin 28.4 pg (27-33); Mean Corpuscular Hgb Conc 35.2 g/dL (31-36); Mean Corpuscular Volume 80.8 fL (80-97); Mean Platelet Volume 8.7 fL (7.5-11.2); Nucleated Red Blood Cells % 0.2 /100 WBC (0.0-0.4); Platelet Count 130 10^3/uL (150-450); Red Blood Count 3.85 10^6/uL (3.63-4.92); Red Cell Distribution Width 13.5 % (12-17); White Blood Count 3.4 10^3/uL (3.8-11.8)
[2023-02-03 06:35] LABS: CO2 Carbon Dioxide 28 mmol/L (22-32); Calcium 7.6 mg/dL (8.6-10.3); Chloride 101 mmol/L (101-111); Sodium 136 mmol/L (135-145)
[2023-02-03 06:38] LABS: Anion Gap 7 mmol/L (2-16)
[2023-02-03 06:41] LABS: Blood Urea Nitrogen 18 mg/dL (6-24); Creatinine, Serum 0.97 mg/dL (0.51-0.95); Glucose 80 mg/dL (70-100); eGFR CKD-EPI 66.9 (>60)
[2023-02-03] MEDS ORDERED: CMCS: Pravastatin 20 mg TAB (NF) PO SCH (09:00)
[2023-02-03 09:29] LABS: Free T4 2.77 ng/dL (0.61-1.12)
[2023-02-03] MEDS ORDERED: Regadenoson 0.4 MG/5 ML SYRINGE ONE (10:07)
[2023-02-03] MEDS: CMCS: Pravastatin 20 mg TAB (NF) PO SCH (13:49)
[2023-02-03] MEDS: Ondansetron 4 mg VIAL 2 MG/ML 2 ml VIAL IV PRN (14:59)
[2023-02-03] MEDS: ZOLMITRIPTAN 2.5 MG PO PRN (16:07)
[2023-02-04 06:38] LABS: ABS Lymphocytes 1.2 10^3/uL (1.0-4.8); ABS Monocytes 0.3 10^3/uL (0.0-0.9); Eosinophil % 1.3 %; Hematocrit 29.6 % (35-45); Hemoglobin 10.3 g/dL (11.5-14.3); Lymphocyte % 33.5 %; Mean Corpuscular Hemoglobin 28.4 pg (27-33); Mean Corpuscular Hgb Conc 34.9 g/dL (31-36); Mean Corpuscular Volume 81.3 fL (80-97); Mean Platelet Volume 9.3 fL (7.5-11.2); Nucleated Red Blood Cells % 0.1 /100 WBC (0.0-0.4); Platelet Count 114 10^3/uL (150-450); Red Blood Count 3.64 10^6/uL (3.63-4.92); Red Cell Distribution Width 13.7 % (12-17); White Blood Count 3.5 10^3/uL (3.8-11.8)
[2023-02-04 07:00] LABS: Creatinine, Serum 0.91 mg/dL (0.51-0.95); Magnesium 1.8 mg/dL (1.9-2.7); Potassium 3.1 mmol/L (3.5-5.0); eGFR CKD-EPI 72.2 (>60)
[2023-02-04] MEDS ORDERED: Magnesium Sulfate IV 3 GM in NS 0.9% 100 ml BAG 100 ML IVPB ONE (07:29)
[2023-02-04] MEDS ORDERED: Lactated Ringers 1000 ml BAG 1,000 ML IV ONE (07:31)
[2023-02-04] MEDS: Ondansetron 4 mg VIAL 2 MG/ML 2 ml VIAL IV PRN (09:40)
[2023-02-04] MEDS: CMCS: Pravastatin 20 mg TAB (NF) PO SCH (09:41)
[2023-02-04] MEDS: Lactated Ringers 1000 ml BAG 1,000 ML IV SCH ×2 (11:42→18:40)
[2023-02-04] MEDS: GLATIRAMER 40 MG/ML SUBCUT SCH (21:17)
[2023-02-05] MEDS: Ondansetron 4 mg VIAL 2 MG/ML 2 ml VIAL IV PRN ×2 (02:43→14:13)
[2023-02-05 05:56] LABS: ABS Lymphocytes 1.3 10^3/uL (1.0-4.8); ABS Monocytes 0.3 10^3/uL (0.0-0.9); ABS Neutrophils 2.3 10^3/uL (1.5-7.6); Eosinophil % 1.1 %; Hematocrit 26.5 % (35-45); Hemoglobin 9.4 g/dL (11.5-14.3); Lymphocyte % 33.3 %; Mean Corpuscular Hemoglobin 28.6 pg (27-33); Mean Corpuscular Hgb Conc 35.3 g/dL (31-36); Mean Corpuscular Volume 80.9 fL (80-97); Mean Platelet Volume 8.9 fL (7.5-11.2); Platelet Count 105 10^3/uL (150-450); Red Blood Count 3.27 10^6/uL (3.63-4.92); Red Cell Distribution Width 13.6 % (12-17)
[2023-02-05 06:13] LABS: Calcium 7.8 mg/dL (8.6-10.3); Creatinine, Serum 0.81 mg/dL (0.51-0.95); Magnesium 1.9 mg/dL (1.9-2.7); Potassium 3.1 mmol/L (3.5-5.0); eGFR CKD-EPI 83.1 (>60)
[2023-02-05] MEDS: CMCS: Pravastatin 20 mg TAB (NF) PO SCH (08:44)
[2023-02-05] MEDS: KCL 20 MEQ/100 ML IVPREMIX 20 MEQ/100 ML BAG IV SCH ×2 (10:33→14:13)
[2023-02-05] MEDS ORDERED: KCL 20 MEQ/100 ML IVPREMIX 20 MEQ/100 ML BAG IV ONE (16:04)
[2023-02-06] MEDS: CMCS: Pravastatin 20 mg TAB (NF) PO SCH (08:28)
[2023-02-06 09:58] LABS: ABS Monocytes 0.2 10^3/uL (0.0-0.9); ABS Neutrophils 2.2 10^3/uL (1.5-7.6); ABS Nucleated RBC 0.01 10^3/ul; Eosinophil % 1.4 %; Hematocrit 29.7 % (35-45); Hemoglobin 10.3 g/dL (11.5-14.3); Lymphocyte % 28.9 %; Mean Corpuscular Hemoglobin 28.3 pg (27-33); Mean Corpuscular Hgb Conc 34.6 g/dL (31-36); Mean Corpuscular Volume 81.8 fL (80-97); Mean Platelet Volume 8.3 fL (7.5-11.2); Nucleated Red Blood Cells % 0.2 /100 WBC (0.0-0.4); Platelet Count 103 10^3/uL (150-450); Red Blood Count 3.64 10^6/uL (3.63-4.92); Red Cell Distribution Width 14.2 % (12-17); White Blood Count 3.4 10^3/uL (3.8-11.8)
[2023-02-06 11:02] LABS: Albumin 2.8 g/dL (3.2-5.2); Albumin/Globulin Ratio 1.6 (1-3); Calcium 7.9 mg/dL (8.6-10.3); Creatinine, Serum 0.86 mg/dL (0.51-0.95); Globulin 1.8 g/dL (2-4); Magnesium 1.6 mg/dL (1.9-2.7); Potassium 3.4 mmol/L (3.5-5.0); Total Bilirubin 0.4 mg/dL (0.2-1.0); Total Protein 4.6 g/dL (6.4-8.9); eGFR CKD-EPI 77.3 (>60)
[2023-02-06] MEDS: ZOLMITRIPTAN 2.5 MG PO PRN (14:22)
[2023-02-06] MEDS ORDERED: KCL 20 MEQ/100 ML IVPREMIX 20 MEQ/100 ML BAG IV ONE (14:28)
[2023-02-06] MEDS ORDERED: Glycerin ADULT 2.4 gm SUPP PR PRN (14:29)
[2023-02-06 15:42] LABS: Urine Appearance Cloudy; Urine Bilirubin Negative (Negative); Urine Blood 1+ (Negative); Urine Color Amber; Urine Glucose Negative (Negative); Urine Ketones Negative (Negative); Urine Nitrite Positive (Negative); Urine Protein 1+(30 mg/dL) (Negative); Urine Specific Gravity 1.019 (1.002-1.030); Urine Urobilinogen Negative (Negative)
[2023-02-06 15:49] LABS: Urine Bacteria 1+ (Absent); Urine Red Blood Cell 2+(6-10/hpf) (Absent); Urine Squamous Epithelial Cell Present (Absent); Urine White Blood Cell 3+(>20/hpf) (Absent)
[2023-02-06 17:10] LABS: Anaplasma phagocytophilum Negative (Negative); B. miyamotoi PCR, B Negative (Negative); Babesia divergens/MO-1 Negative (Negative); Babesia ducani Negative (Negative); Ehrlichia chaffeensis Negative (Negative); Ehrlichia ewingii/canis Negative (Negative); Ehrlichia muris eauclairensis Negative (Negative)
[2023-02-07] MEDS: CMCS: Pravastatin 20 mg TAB (NF) PO SCH (08:56)
[2023-02-07] MEDS ORDERED: KCL 20 MEQ/100 ML IVPREMIX 20 MEQ/100 ML BAG IV ONE (09:30)
[2023-02-07] MEDS ORDERED: Magnesium Sulfate IV 1GM/100ML 1 GM/100 ML BAG IV ONE (09:30)
[2023-02-07] MEDS: GLATIRAMER 40 MG/ML SUBCUT SCH (21:45)
[2023-02-08 09:01] LABS: ABS Eosinophils 0.1 10^3/uL (0.0-0.5); ABS Lymphocytes 1.1 10^3/uL (1.0-4.8); ABS Monocytes 0.2 10^3/uL (0.0-0.9); ABS Neutrophils 2.6 10^3/uL (1.5-7.6); Eosinophil % 1.6 %; Hematocrit 31.9 % (35-45); Hemoglobin 11.1 g/dL (11.5-14.3); Lymphocyte % 27.6 %; Mean Corpuscular Hemoglobin 28.5 pg (27-33); Mean Corpuscular Hgb Conc 34.9 g/dL (31-36); Mean Corpuscular Volume 81.6 fL (80-97); Mean Platelet Volume 8.4 fL (7.5-11.2); Nucleated Red Blood Cells % 0.1 /100 WBC (0.0-0.4); Platelet Count 122 10^3/uL (150-450); Red Blood Count 3.91 10^6/uL (3.63-4.92); Red Cell Distribution Width 13.9 % (12-17); White Blood Count 3.9 10^3/uL (3.8-11.8)
[2023-02-08 09:16] LABS: Calcium 8.4 mg/dL (8.6-10.3); Magnesium 1.7 mg/dL (1.9-2.7); Potassium 3.6 mmol/L (3.5-5.0)
[2023-02-08] MEDS: CMCS: Pravastatin 20 mg TAB (NF) PO SCH (09:18)
[2023-02-08 09:22] LABS: Creatinine, Serum 0.82 mg/dL (0.51-0.95); eGFR CKD-EPI 81.8 (>60)
[2023-02-08] MEDS ORDERED: Magnesium Sulfate IV 3 GM in NS 0.9% 100 ml BAG 100 ML IVPB ONE (09:56)
[2023-02-08] MEDS ORDERED: Potassium Chlor 20 meq TAB.ER PO ONE (09:56)
[2023-02-08] MEDS: cefTRIAXone 1 gm/50 mL D5W 1 GM/50 ML BAG IV SCH (11:37)
[2023-02-08] MEDS: ZOLMITRIPTAN 2.5 MG PO PRN (11:45)
[2023-02-08] MEDS ORDERED: Potassium EFFERVES 25 meq TAB PO ONE (12:50)
[2023-02-09] MEDS: ZOLMITRIPTAN 2.5 MG PO PRN (09:53)
[2023-02-09] MEDS: CMCS: Pravastatin 20 mg TAB (NF) PO SCH (09:57)
[2023-02-09] MEDS: cefTRIAXone 1 gm/50 mL D5W 1 GM/50 ML BAG IV SCH (09:57)
[2023-02-09] MEDS ORDERED: Lactulose 30 ml UDC PO SCH (14:00)
[2023-02-09 15:06] VITALS: BP 110/72
== END 2023-02-09 15:16 | disposition home or self-care (01) | DRG 391 ==
LOC: ED 10:06 → EDHOLD 10:06 → SUATTDRO 16:35 → MEDTELE 18:08 → SUATTDRO 02-04 10:25
PROVIDERS: ADMIT Internal Medicine; ATTEND Internal Medicine